=== PATIENT | female | born 1955 | race American Indian/Alaskan Native ===

== ENCOUNTER 2016-11-02 15:54 | Emergency (ER) | payer MEDICARE ==
[2016-11-02 16:15] VITALS: BP 157/90
[2016-11-02 17:05] LABS: Basophils % (Auto) 0.6 % (0.0-1.8); Hematocrit 41.5 % (30.3-42.9); Hemoglobin 13.8 gm/dl (10.1-14.3); Mean Corpuscular HGB Conc 33 % (30-34); Mean Corpuscular Hemoglobin 31 pg (28-32); Mean Corpuscular Volume 93 fl (79-97); Platelet Count 195 K/mm3 (140-440); Red Blood Count 4.44 M/mm3 (3.65-5.03); White Blood Count 8.4 K/mm3 (4.5-11.0)
[2016-11-02 17:16] LABS: Anion Gap 20 mmol/L; BUN/Creatinine Ratio 18.75; Blood Urea Nitrogen 15 mg/dL (7-17); Calcium 8.6 mg/dL (8.4-10.2); Carbon Dioxide 19 mmol/L (22-30); Glucose 97 mg/dL (65-100); Potassium 3.4 mmol/L (3.6-5.0); Sodium 139 mmol/L (137-145)
--- NOTE | 2016-11-02 17:17 | Emergency Department Report ---
Entered by ALEKS YORK, acting as scribe for PEDRO PABLO KAMARA PA. Chief Complaint: Chest Pain Stated Complaint: CHEST PAIN Time Seen by Provider: 11/02/16 16:23 - HPI History of Present Illness: Pt brought in my granddaughter c/o intermittent chest pain that began 1 week ago. Pt's granddaughter reports associated left sided numbness and contracted left hand. Notes the last time the patient c/o of chest pain was this morning. Reports nausea and vomiting. Pt had 1 vomiting episode last week and was vomiting this morning, but the vomiting has subsided. Denies dysuria. Denies any pain currently in the ED. PMHx of HTN, diabetes, and CVA Granddaughter reports non-compliancy to medication. - ROS Review of Systems: All systems are negative unless stated in the HPI above. - Exam Vital Signs: Vital Signs 11/02/16 16:09 Temperature 97.8 F Respiratory 20 Rate Blood Pressure 157/90 O2 Sat by Pulse 100 Oximetry Physical Exam: GENERAL: Patient is alert and oriented x 3. No apparent distress, normal gait, atraumatic. LUNGS: Symmetrical with respiration. No wheezing, rales or crackles, CTAB. HEART: Regular rate and rhythm with normal S1/S2 present. No murmurs, rubs, or gallops. Neurologic: Normal tongue deviation. MSE screening note: Focused history and physical exam performed. Due to findings the following was ordered: ED Medical Decision Making - Lab Data Result diagrams: 11/02/16 16:34 11/02/16 16:34 - EKG Data EKG shows normal: sinus rhythm Rate: normal - EKG Data Interpretation: nonspecific ST-T wave karen (nonspecific T wave abnormality) - Medical Decision Making Patient seen by provider in triage area. EKG shows normal sinus rhythm with a nonspecific T wave abnormality and left axis deviation. Lab work was done and sent in for patient. Patient will be seen by another provider in the main ED for further evaluation and treatment. ED Disposition for MSE Condition: Stable This documentation as recorded by the scribe,ALEKS YORK,accurately reflects the service I personally performed and the decisions made by me, PEDRO PABLO KAMARA PA.
--- NOTE | 2016-11-06 16:00 | ED Elopement Review ---
ED Pt Elopement review - Results review Lab results: Laboratory Tests 11/02/16 11/02/16 16:34 16:34 WBC 8.4 RBC 4.44 Hgb 13.8 Hct 41.5 MCV 93 MCH 31 MCHC 33 RDW 14.0 Plt Count 195 Lymph % (Auto) 38.0 H [place] % (Auto) 10.2 H Eos % (Auto) 2.0 Baso % (Auto) 0.6 Lymph # 3.2 [place] # 0.9 H Eos # 0.2 Baso # 0.1 Seg Neutrophils % 49.2 Seg Neutrophils # 4.2 Sodium 139 Potassium 3.4 L Chloride 103.0 Carbon Dioxide 19 L Anion Gap 20 BUN 15 Creatinine 0.8 Estimated GFR > 60 BUN/Creatinine Ratio 18.75 Glucose 97 Calcium 8.6 Troponin T < 0.010 - Call Back decision Pt Call Back Decision: No action required
== END 2016-11-02 16:35 | disposition left against medical advice (07) ==
LOC: ED 15:54
DX: R07.9 Chest pain, unspecified (principal); R20.0 Anesthesia of skin; R11.2 Nausea with vomiting, unspecified; I10 Essential (primary) hypertension; E11.9 Type 2 diabetes mellitus without complications; I63.9 Cerebral infarction, unspecified; Z53.21 Procedure and treatment not carried out due to patient leaving prior to being seen by health care provider
CPT/HCPCS: 36415; 80048; 84484; 85025; 93005; 93010

== ENCOUNTER 2017-06-16 20:32 | Emergency (ER) | payer MEDICARE ==
--- NOTE | 2017-06-16 22:31 | XRay Report ---
FINAL REPORT PROCEDURE: XR HAND 3+V RT TECHNIQUE: Right hand, three views HISTORY: fall hand pain COMPARISON: No prior studies are available for comparison. FINDINGS: There is an acute displaced fracture of the 5th middle phalanx shaft. No joint dislocation. Distal fragment is displaced anteriorly by half a bone width. There is also a nondisplaced fracture of the 4th middle phalanx. IMPRESSION: Fracture of the 5th middle phalanx Fracture of the 4th middle phalanx
[2017-06-17] MEDS ORDERED: NORCO 5/325 ONE (00:29)
[2017-06-17] MEDS ORDERED: NORCO 5/325 PO ONE (00:30)
--- NOTE | 2017-06-17 02:57 | Emergency Department Report ---
HPI - General Chief Complaint: Fall Time Seen by Provider: 06/17/17 02:54 - HPI HPI: Patient is a 61-year-old female who presents to ED with right fourth and fifth finger pain times today. Patient states she was in the shower when she hit her finger on the bed railing. Patient states she did not hit her head or had any consciousness after fall. Fall was from a very ground nor elevation. She denies fevers/chills/nausea/vomiting/headache/dizziness or any other problems. ED Past Medical Hx - Past Medical History Hx Hypertension: Yes Hx CVA: Yes (2008-left sided weakness) Hx Diabetes: Yes Hx COPD: No - Social History Smoking Status: Never Smoker Substance Use Type: None - Medications Home Medications: Home Medications Medication Instructions Recorded Confirmed Last Taken Type Amlodipine Besylate 5 mg PO DAILY 01/02/15 01/02/15 Unknown History Clopidogrel [Plavix] 75 mg PO QDAY 01/02/15 01/02/15 Unknown History Lisinopril/Hydrochlorothiazide 20 mg PO DAILY 01/02/15 01/02/15 Unknown History [Zestoretic 20-12.5 mg] Lovastatin [Altoprev] 40 mg PO QPM 01/02/15 01/02/15 Unknown History Metoprolol [Lopressor TAB] 50 mg PO DAILY 01/02/15 01/02/15 Unknown History Acetaminophen/Codeine [Tylenol 1 tab PO Q6H PRN #10 tab 06/17/17 Unknown Rx /Codeine # 3 tab] Naproxen [Naprosyn] 500 mg PO BID #30 tablet 06/17/17 Unknown Rx ED Review of Systems ROS: Stated complaint: FALL / HAND INJURY Other details as noted in HPI Constitutional: denies: chills, fever Eyes: denies: eye pain, eye discharge, vision change ENT: denies: ear pain, throat pain Respiratory: denies: cough, shortness of breath, wheezing Cardiovascular: denies: chest pain, palpitations Endocrine: no symptoms reported Gastrointestinal: denies: abdominal pain, nausea, diarrhea Genitourinary: denies: urgency, dysuria, discharge Musculoskeletal: denies: back pain, joint swelling, arthralgia Skin: denies: rash, lesions Neurological: denies: headache, weakness, paresthesias Psychiatric: denies: anxiety, depression Hematological/Lymphatic: denies: easy bleeding, easy bruising Physical Exam - Physical Exam Vital Signs: Vital Signs 06/16/17 21:55 Temperature 98.3 F Pulse Rate 77 Respiratory 16 Rate Blood Pressure 175/85 O2 Sat by Pulse 95 Oximetry Physical Exam: GENERAL: Alert and oriented x3, no apparent distress, Normal Gait, atraumatic. HEAD: Head is normocephalic and a-traumatic. MOUTH:Mouth is well hydrated and without lesions. Tonsils nonerythematous or swollen, Uvula midline, Tongue not elevated. Mucous membranes are moist. Posterior pharynx clear, no exudate or lesions. Patent airways. NECK: Supple. Non edematous, No lymphadenopathy or thyromegaly. No C-spine tenderness LUNGS: Symetrical with respiration, No wheezing, no rales or crackles, CTAB. HEART: S1, S2 present, regular rate and rhythm without murmur, no rubs, no gallops. Non tender to palpation EXTREMITIES/MUSCULOSKELETAL: No cyanosis, clubbing, rash, lesions or edema. Full ROM bilaterally. UE/LE Pulses 2+ bilaterally. LE and UE 5+ strength bilaterally, right fifth digit finger mildly ecchymosis, tenderness to palpation , pain with dorsiflexion of the finger. Mild Tenderness to palpation of the fourth digit, nonswollen, no ecchymosis, mild abrasion at anterior distal phalanx. no bleeding. NEUROLOGIC: The patient is cooperative with no focal neurologic deficits. . Normal speech. Normal sensation in bilateral upper and lower extremities, No loss of sensation, SKIN: Warm and dry, No lesions, No ulceration or induration present. ED Course Vital Signs 06/16/17 21:55 Temperature 98.3 F Pulse Rate 77 Respiratory 16 Rate Blood Pressure 175/85 O2 Sat by Pulse 95 Oximetry ED Medical Decision Making - Radiology Data Radiology results: report reviewed, image reviewed FINAL REPORT PROCEDURE: XR HAND 3+V RT TECHNIQUE: Right hand, three views HISTORY: fall hand pain COMPARISON: No prior studies are available for comparison. FINDINGS: There is an acute displaced fracture of the 5th middle phalanx shaft. No joint dislocation. Distal fragment is displaced anteriorly by half a bone width. There is also a nondisplaced fracture of the 4th middle phalanx. IMPRESSION: Fracture of the 5th middle phalanx Fracture of the 4th middle phalanx Transcribed By: [facility] Dictated By: JEREMIAS OWUSU M.D. Electronically Authenticated By: JEREMIAS OWUSU M.D. Signed Date/Time: 06/16/171826 - Medical Decision Making 61-year-old female presents with the nondisplaced fracture of the fourth middle phalanx. Mildly displaced fracture of the fifth middle phalanx ED course: Patient received 1 tablet of [place] in ED X-ray shows results see above I discussed this findings with the patient. I discussed with the patient to follow up with Dr. Ly orthopedic doctor. Vital signs are normal patient is in no acute distress. Patient received a finger splint prior to discharge Critical care attestation.: If time is entered above; I have spent that time in minutes in the direct care of this critically ill patient, excluding procedure time. ED Disposition Clinical Impression: Fracture, finger, distal phalanx Qualifiers: Encounter type: initial encounter Finger: little finger Fracture type: closed Fracture alignment: displaced Laterality: right Qualified Code(s): S62.636A - Displaced fracture of distal phalanx of right little finger, initial encounter for closed fracture Disposition: DC-01 TO HOME OR SELFCARE Is pt being admited?: No Does the pt Need Aspirin: No Condition: Stable Instructions: Finger Fracture (ED), Splint Care (ED) Additional Instructions: Make sure to follow up with the orthopedic doctor Malachi as discussed. Take all your medications as you've been prescribed. If you have any worsening symptoms or develop new symptoms please return to ED immediately. Prescriptions: Acetaminophen/Codeine [Tylenol /Codeine # 3 tab] 1 tab PO Q6H PRN #10 tab PRN Reason: Pain Naproxen [Naprosyn] 500 mg PO BID #30 tablet Referrals: PRIMARY MD LISANDRA [Primary Care Provider] - 3-5 Days DENEEN LY MD [Staff Physician] - 3-5 Days Forms: Accompanied Note, Work/School Release Form(ED) Time of Disposition: 03:27
[2017-06-17 05:44] VITALS: BP 166/88
== END 2017-06-17 03:55 | disposition home or self-care (01) ==
LOC: ED 20:32
DX: S62.636A Displaced fracture of distal phalanx of right little finger, initial encounter for closed fracture (principal); I10 Essential (primary) hypertension; W22.8XXA Striking against or struck by other objects, initial encounter; Y93.89 Activity, other specified; Y92.89 Other specified places as the place of occurrence of the external cause; Y99.8 Other external cause status

== ENCOUNTER 2017-10-17 23:52 | Emergency (ER) | payer MEDICARE ==
--- NOTE | 2017-10-18 00:09 | Emergency Department Report ---
ED Altered Mental Status HPI - General Stated Complaint: ETOH/HYPERTENSION Time Seen by Provider: 10/17/17 23:57 Source: patient Mode of arrival: Stretcher Limitations: Altered Mental Status - History of Present Illness Initial Comments: 62-year-old female with a past medical history of vascular dementia, hypertension, diabetes, previous CVA with residual left-sided deficits presents for complaints of alteration in mental status and possible acute alcohol ingestion. Family was celebrating at the house for Mother's Day. Patient was found acting strange empty bottle of [employer] kaila. Patient denies daily alcohol use. Patient denies alcohol consumption today. When asked any question patient states "I'm good" and denies pain. She is oriented to self only. Accu-Chek 110 in the field. Blood pressure 240/130 upon EMS arrival. At the daughter arrival she was able to provide further history of present illness. Patient states she took a day trip to [place] so patient was home alone most of the day. Relay down and when she woke up her mother was calling for help she found patient in the bed slumped over and with generalized weakness and unable to ambulate. Patient was responsive but with slurring words and seemed confused. They later found the empty bottle of E and [employer] kaila after EMS was called. Patient does drink alcohol daily. She confirms that patient is at her baseline mental status currently and has some baseline memory deficits secondary to previous CVA. She is typically not aware of the year. At her baseline she ambulates with a walker or holding onto the taylor in their home. - Related Data Home Medications Medication Instructions Recorded Confirmed Last Taken Clopidogrel [Plavix] 75 mg PO QDAY 01/02/15 10/18/17 Unknown Lisinopril/Hydrochlorothiazide 20 mg PO DAILY 01/02/15 10/18/17 Unknown [Zestoretic 20-12.5 mg] Metoprolol [Lopressor TAB] 50 mg PO DAILY 01/02/15 10/18/17 Unknown metFORMIN [Glucophage] 1,000 mg PO BID 10/18/17 10/18/17 Unknown Allergies Allergy/AdvReac Type Severity Reaction Status Date / Time No Known Allergies Allergy Unverified 01/02/15 17:36 ED Review of Systems ROS: Stated complaint: ETOH/HYPERTENSION Other details as noted in HPI Comment: All other systems reviewed and negative ED Past Medical Hx - Past Medical History Hx Hypertension: Yes Hx CVA: Yes (2008-left sided weakness) Hx Diabetes: Yes Hx COPD: No Hx Dementia: Yes (vascular) - Social History Smoking Status: Never Smoker Substance Use Type: None - Medications Home Medications: Home Medications Medication Instructions Recorded Confirmed Last Taken Type Clopidogrel [Plavix] 75 mg PO QDAY 01/02/15 10/18/17 Unknown History Lisinopril/Hydrochlorothiazide 20 mg PO DAILY 01/02/15 10/18/17 Unknown History [Zestoretic 20-12.5 mg] Metoprolol [Lopressor TAB] 50 mg PO DAILY 01/02/15 10/18/17 Unknown History metFORMIN [Glucophage] 1,000 mg PO BID 10/18/17 10/18/17 Unknown History ED Physical Exam - Other Other exam information: General: No limitations, patient is alert in no acute distress Head exam: Atraumatic, normocephalic Eyes exam: Normal appearance, pupils equal reactive to light, extraocular movements intact ENT: Moist mucous membrane, normal oropharynx Neck exam: Normal inspection, full range of motion, no meningismus nontender Respiratory exam: Clear to auscultation bilateral, no wheezes, rales, crackles Cardiovascular: Normal rate and rhythm, normal heart sounds Abdomen: Soft, nondistended, and nontender, with normal bowel sounds, no rebound, or guarding Extremity: Full range of motion normal inspection no deformity Back: Normal Inspection, full range of motion, no tenderness Neurologic: Alert, oriented to self only. No face droop, speech clear. Left arm Arm paralysis with contraction. 3/5 left lower extremity strength Psychiatric: normal affect, normal mood Skin: Warm, dry, intact ED Course Vital Signs 10/18/17 10/18/17 10/18/17 00:00 00:02 00:07 Temperature 98.2 F Pulse Rate 92 H 93 H Respiratory 10 L 21 Rate Blood Pressure 167/89 167/89 Blood Pressure [Right] O2 Sat by Pulse 97 Oximetry 10/18/17 10/18/17 10/18/17 00:28 01:44 01:49 Temperature Pulse Rate 86 85 Respiratory 18 20 20 Rate Blood Pressure 170/97 Blood Pressure 170/97 [Right] O2 Sat by Pulse 97 97 Oximetry - Lab Data Result diagrams: 10/18/17 00:41 05/14/18 00:41 Lab Results 10/18/17 10/18/17 10/18/17 Range/Units 00:41 00:41 00:41 WBC 8.7 (4.5-11.0) K/mm3 RBC 4.61 (3.65-5.03) M/mm3 Hgb 14.3 (10.1-14.3) gm/dl Hct 43.7 H (30.3-42.9) % MCV 95 (79-97) fl MCH 31 (28-32) pg MCHC 33 (30-34) % RDW 14.1 (13.2-15.2) % Plt Count 206 (140-440) K/mm3 Lymph % (Auto) 33.3 (13.4-35.0) % [place] % (Auto) 8.2 H (0.0-7.3) % Eos % (Auto) 1.3 (0.0-4.3) % Baso % (Auto) 0.4 (0.0-1.8) % Lymph # 2.9 (1.2-5.4) K/mm3 [place] # 0.7 (0.0-0.8) K/mm3 Eos # 0.1 (0.0-0.4) K/mm3 Baso # 0.0 (0.0-0.1) K/mm3 Seg Neutrophils % 56.8 (40.0-70.0) % Seg Neutrophils # 4.9 (1.8-7.7) K/mm3 Sodium 142 (137-145) mmol/L Potassium 3.6 (3.6-5.0) mmol/L Chloride 104.9 (98-107) mmol/L Carbon Dioxide 21 L (22-30) mmol/L Anion Gap 20 mmol/L BUN 13 (7-17) mg/dL Creatinine 0.7 (0.7-1.2) mg/dL Estimated GFR > 60 ml/min BUN/Creatinine Ratio 19 % Glucose 181 H (65-100) mg/dL Calcium 9.0 (8.4-10.2) mg/dL Magnesium (1.7-2.3) mg/dL Total Bilirubin < 0.20 (0.1-1.2) mg/dL AST 9 (5-40) units/L ALT 7 (7-56) units/L Alkaline Phosphatase 94 (35-129) units/L Total Protein 7.1 (6.3-8.2) g/dL Albumin 3.7 L (3.9-5) g/dL Albumin/Globulin Ratio 1.1 % Urine Color (Yellow) Urine Turbidity (Clear) Urine pH (5.0-7.0) Ur Specific [place] (1.003-1.030) Urine Protein (Negative) mg/dL Urine Glucose (UA) (Negative) mg/dL Urine Ketones (Negative) mg/dL Urine Blood (Negative) Urine Nitrite (Negative) Urine Bilirubin (Negative) Urine Urobilinogen (<2.0) mg/dL Ur Leukocyte Esterase (Negative) Urine WBC (Auto) (0.0-6.0) /HPF Urine RBC (Auto) (0.0-6.0) /HPF U Epithel Cells (Auto) (0-13.0) /HPF Urine Opiates Screen Urine Methadone Screen Ur Barbiturates Screen Ur Phencyclidine Scrn Ur Amphetamines Screen U Benzodiazepines Scrn Urine Cocaine Screen U Marijuana (THC) Screen Drugs of Abuse Note Plasma/Serum Alcohol 0.14 H (0-0.07) % 10/18/17 10/18/17 10/18/17 Range/Units 00:41 01:05 01:05 WBC (4.5-11.0) K/mm3 RBC (3.65-5.03) M/mm3 Hgb (10.1-14.3) gm/dl Hct (30.3-42.9) % MCV (79-97) fl MCH (28-32) pg MCHC (30-34) % RDW (13.2-15.2) % Plt Count (140-440) K/mm3 Lymph % (Auto) (13.4-35.0) % [place] % (Auto) (0.0-7.3) % Eos % (Auto) (0.0-4.3) % Baso % (Auto) (0.0-1.8) % Lymph # (1.2-5.4) K/mm3 [place] # (0.0-0.8) K/mm3 Eos # (0.0-0.4) K/mm3 Baso # (0.0-0.1) K/mm3 Seg Neutrophils % (40.0-70.0) % Seg Neutrophils # (1.8-7.7) K/mm3 Sodium (137-145) mmol/L Potassium (3.6-5.0) mmol/L Chloride (98-107) mmol/L Carbon Dioxide (22-30) mmol/L Anion Gap mmol/L BUN (7-17) mg/dL Creatinine (0.7-1.2) mg/dL Estimated GFR ml/min BUN/Creatinine Ratio % Glucose (65-100) mg/dL Calcium (8.4-10.2) mg/dL Magnesium 2.10 (1.7-2.3) mg/dL Total Bilirubin (0.1-1.2) mg/dL AST (5-40) units/L ALT (7-56) units/L Alkaline Phosphatase (35-129) units/L Total Protein (6.3-8.2) g/dL Albumin (3.9-5) g/dL Albumin/Globulin Ratio % Urine Color Straw (Yellow) Urine Turbidity Clear (Clear) Urine pH 5.0 (5.0-7.0) Ur Specific [place] 1.006 (1.003-1.030) Urine Protein <15 mg/dl (Negative) mg/dL Urine Glucose (UA) Neg (Negative) mg/dL Urine Ketones Neg (Negative) mg/dL Urine Blood Neg (Negative) Urine Nitrite Neg (Negative) Urine Bilirubin Neg (Negative) Urine Urobilinogen < 2.0 (<2.0) mg/dL Ur Leukocyte Esterase Neg (Negative) Urine WBC (Auto) 1.0 (0.0-6.0) /HPF Urine RBC (Auto) 2.0 (0.0-6.0) /HPF U Epithel Cells (Auto) 2.0 (0-13.0) /HPF Urine Opiates Screen Presumptive negative Urine Methadone Screen Presumptive negative Ur Barbiturates Screen Presumptive negative Ur Phencyclidine Scrn Presumptive negative Ur Amphetamines Screen Presumptive negative U Benzodiazepines Scrn Presumptive negative Urine Cocaine Screen Presumptive negative U Marijuana (THC) Screen Presumptive negative Drugs of Abuse Note Disclamer Plasma/Serum Alcohol (0-0.07) % - EKG Data -: EKG Interpreted by Ne EKG shows normal: sinus rhythm, axis (qrs -28), QRS complexes (qrsd 78), ST-T waves (no steim/t inv) Rate: normal (86) When compared to previous EKG there are: no significant change - Radiology Data Radiology results: report reviewed ct head IMPRESSION: Generalized atrophy with remote infarcts as described. No evidence of acute stroke or hemorrhage. - Medical Decision Making Started bedside echo for the patient is at her baseline mental status. Patient has elevated alcohol level. Source of alteration in mental status is likely acute alcohol intoxication. Since the patient is at baseline mental status she will be discharged home under her daughter's care. Please note that patient had normal respiratory rate did not have a rate of 10 during ED stay - Differential Diagnosis encephalopathy, alcohol intoxication, cva, ich, infection Critical Care Time: No Critical care attestation.: If time is entered above; I have spent that time in minutes in the direct care of this critically ill patient, excluding procedure time. 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
--- NOTE | 2017-10-18 00:45 | Cat Scan Report ---
FINAL REPORT EXAM: CT HEAD/BRAIN WO CON HISTORY: ams, possible etoh, old left paralysis cva TECHNIQUE: Routine axial imaging was obtained of the brain without IV contrast. Comparison is made to the study of 01/02/2015. FINDINGS: There is a large remote infarct involving the left frontal temporal and parietal lobes in the distribution of the left middle cerebral artery. There are remote lacunar infarcts in the basal ganglia also. There is diminished attenuation of the periventricular white matter compatible chronic microvascular changes. There is generalized ventriculomegaly. There is no evidence of acute stroke or hemorrhage. The visualized sinuses are clear. The mastoid air cells are well pneumatized. The calvarium appears intact. IMPRESSION: Generalized atrophy with remote infarcts as described. No evidence of acute stroke or hemorrhage.
[2017-10-18 01:06] LABS: Basophils % (Auto) 0.4 % (0.0-1.8); Eosinophils # (Auto) 0.1 K/mm3 (0.0-0.4); Eosinophils % (Auto) 1.3 % (0.0-4.3); Hematocrit 43.7 % (30.3-42.9); Hemoglobin 14.3 gm/dl (10.1-14.3); Lymphocytes # (Auto) 2.9 K/mm3 (1.2-5.4); Lymphocytes % (Auto) 33.3 % (13.4-35.0); Mean Corpuscular HGB Conc 33 % (30-34); Mean Corpuscular Hemoglobin 31 pg (28-32); Mean Corpuscular Volume 95 fl (79-97); Monocytes # (Auto) 0.7 K/mm3 (0.0-0.8); Monocytes % (Auto) 8.2 % (0.0-7.3); Platelet Count 206 K/mm3 (140-440); Red Blood Count 4.61 M/mm3 (3.65-5.03); Red Cell Distribution Width 14.1 % (13.2-15.2)
[2017-10-18 01:14] LABS: Bilirubin,Urine NEG (Negative); Blood,Urine NEG (Negative); Color,Urine Straw (Yellow); Protein,Urine <15 mg/dL mg/dL (Negative); Urobilinogen,Urine < 2.0 mg/dL (<2.0)
[2017-10-18 01:35] LABS: Alanine Aminotransferase 7 units/L (7-56); Albumin 3.7 g/dL (3.9-5); BUN/Creatinine Ratio 19; Blood Urea Nitrogen 13 mg/dL (7-17); Hemolysis Index 2
[2017-10-18 01:42] LABS: Amphetamine Screen,Urine PRESUMPTIVE NEGATIVE; Benzodiazepines Screen,Urine PRESUMPTIVE NEGATIVE; Cannabinoid Screen,Urine PRESUMPTIVE NEGATIVE; Cocaine Screen,Urine PRESUMPTIVE NEGATIVE; Methadone Screen,Urine PRESUMPTIVE NEGATIVE; Opiate Screen,Urine PRESUMPTIVE NEGATIVE
[2017-10-18 01:49] VITALS: BP 170/97
== END 2017-10-18 02:24 | disposition home or self-care (01) ==
LOC: ED 23:52
DX: F10.129 Alcohol abuse with intoxication, unspecified (principal); I69.354 Hemiplegia and hemiparesis following cerebral infarction affecting left non-dominant side; F01.50 Vascular dementia, unspecified severity, without behavioral disturbance, psychotic disturbance, mood disturbance, and anxiety; I10 Essential (primary) hypertension; E11.9 Type 2 diabetes mellitus without complications; Y90.9 Presence of alcohol in blood, level not specified; Z79.899 Other long term (current) drug therapy
CPT/HCPCS: 36415; 70450; 80053; 80307; 81001; 83735; 85025; 93005; 93010; 99285; G0480; 80320